=== PATIENT | male | born 1985 | race Caucasian/White ===

== ENCOUNTER 2021-12-03 08:21 | Observation (INO) ==
[2021-12-03] MEDS ORDERED: 0.9 % Sodium Chloride 1,000 ML ONE (09:06)
[2021-12-03 09:07] LABS: Basophils % 0.3 %; Eosinophils # 0.3 K/mcL (0.0-0.6); Eosinophils % 2.5 %; Hematocrit 53.3 % (37.5-50.1); Hemoglobin 18.3 g/dL (12.9-16.9); Immature Granulocytes % 0.4 % (0-4); Lymphocytes # 4.1 K/mcL (0.6-4.6); Lymphocytes % 32.9 %; Mean Corpuscular HGB Conc 34.3 g/dL (31.6-35.5); Mean Corpuscular Hemoglobin 31.8 pg (28.0-33.3); Mean Corpuscular Volume 92.7 fL (83.0-100.0); Mean Platelet Volume 11.4 fL (9.4-12.4); Monocytes # 1.1 K/mcL (0.0-1.3); Monocytes % 8.6 %; Platelet Count 203 K/mcL (140-400); Red Blood Count 5.75 M/mcL (4.19-5.50); Red Cell Distribution Width 13.2 % (11.5-14.5); Segmented Neutrophils % 55.3 %; White Blood Count 12.4 K/mcL (4.3-11.1)
[2021-12-03] MEDS ORDERED: 0.9 % Sodium Chloride 1,000 ML IVC ONE (09:07)
[2021-12-03 09:09] LABS: Neutrophils # 6.9 K/mcL (1.6-8.9)
[2021-12-03 09:18] LABS: Prothrombin Time 11.1 Seconds (9.4-12.1)
[2021-12-03 09:20] LABS: Activated Partial Thrombo Time 25.2 Seconds (26.0-36.0)
[2021-12-03 09:25] LABS: Platelet Estimate Normal (Normal); Reactive Lymphocytes Present (Not Present)
[2021-12-03 09:29] LABS: D-Dimer < 215 ng/mLFEU (0-500)
[2021-12-03 10:12] LABS: BUN/Creatinine Ratio 11 (6-26); Blood Urea Nitrogen 8 mg/dL (6-20); Calcium 9.2 mg/dL (8.6-10.3); Carbon Dioxide 21 mEq/L (23-29); Chloride 104 mEq/L (98-107); Glucose 92 mg/dL (70-105); Osmolality,Calculated 282 (280-300); Potassium 4.2 mEq/L (3.5-5.1); Sodium 137 mEq/L (136-145); Troponin I < 0.03 ng/mL (< 0.04); eGFR For African Americans > 60 (> 60); eGFR For Non-African Americans > 60 (> 60)
[2021-12-03] MEDS ORDERED: Naloxone 0.4 MG/ML INJ IVP PRN (12:14)
[2021-12-03] MEDS ORDERED: Acetaminophen 325 MG TABLET PO PRN (12:14)
[2021-12-03] MEDS: Nicotine 21 MG PATCH.TD24 TD SCH (13:47)
[2021-12-03] MEDS: *HR* Heparin 5,000 UNIT/ML VIAL SQ SCH (18:37)
[2021-12-03 23:50] LABS: Amphetamine Screen,Urine Negative ng/mL (Cutoff=1000); Barbiturate Screen,Urine Negative ng/mL (Cutoff=200); Benzodiazepines Screen,Urine Negative ng/mL (Cutoff=200); Cannabinoid Screen,Urine Positive ng/mL (Cutoff = 50); Cocaine Screen,Urine Negative ng/mL (Cutoff= 300); Opiate Screen,Urine Negative ng/mL (Cutoff=300); Phencyclidine Screen,Urine Negative ng/mL (Cutoff=25)
[2021-12-04 03:41] VITALS: O2SAT 98
[2021-12-04] MEDS: *HR* Heparin 5,000 UNIT/ML VIAL SQ SCH (05:24)
[2021-12-04 06:32] VITALS: TEMP 98.3
[2021-12-04] MEDS ORDERED: Nitroglycerin 0.4 MG TAB.SUBL SL PRN (08:40)
[2021-12-04] MEDS ORDERED: Iopamidol - 370 500 ML MLS IVP ONE (08:40)
[2021-12-04] MEDS ORDERED: *HR* Metoprolol 5 MG/5 ML VIAL IVP PRN (08:40)
[2021-12-04] MEDS: Nicotine 21 MG PATCH.TD24 TD SCH (10:09)
[2021-12-04] MEDS ORDERED: 0.9 % Sodium Chloride 1,000 ML IV ONE (10:48)
[2021-12-04 11:31] VITALS: BP 129/93; PULSE 50
== END 2021-12-04 14:08 | disposition home or self-care (01) ==
LOC: 3BNU 08:21 → EMEROOARM 08:21 → SUATTDRO 17:01 → 3BNU 17:52
PROVIDERS: ADMIT Internal Medicine; ATTEND Internal Medicine